=== PATIENT | female | born 1990 | race Caucasian/White ===

== ENCOUNTER 2018-06-18 23:21 | Emergency (ER) | payer MEDICAID ==
[2018-06-18 23:48] LABS: PLATELET COUNT 335 10^3/uL (150-400)
--- NOTE | 2018-06-19 00:01 | EDPHY ---
H & P Stated Complaint: SI overdose attempt, ETOH,cocaine, hydroxayzine - Personal History LMP (Females 10-55): Irregular Current Tetanus Diphtheria and Acellular Pertussis (TDAP): Yes - Medical/Surgical History Hx Asthma: No Hx Chronic Respiratory Disease: No Hx Diabetes: No Hx Cardiac Disease: No Hx Renal Disease: No Hx Cirrhosis: No Hx Alcoholism: No Hx HIV/AIDS: No Hx Splenectomy or Spleen Trauma: No Other PMH: Depresion, anxiety - Social History Smoking Status: Never smoked Time Seen by Provider: 06/18/18 23:26 HPI/ROS: Chief Complaint: Overdose HPI: 28-year-old woman with a history of anxiety states she was drinking multiple alcoholic drinks tonight, use cocaine in got involved in in argument with a friend. Patient became upset and took 10 hydroxyzine an attempt to " calm down". Patient states she had a similar episode a year ago was hospitalized. Denies any other ingestions. Has a history of anxiety. Also takes clonazepam but denies taking any tonight. No recent illness. No fevers or chills. No nausea or vomiting. No abdominal pain. No lightheadedness or fainting. No chest pain or shortness of breath. ROS: 10 systems were reviewed and were negative except those elements noted in the HPI. PMH: Anxiety Social History: No smoking, positive alcohol, positive cocaine Family History: non-contributory Physical Exam: Gen: Awake, Alert, No Distress HEENT: Nose: no rhinorrhea Eyes: PERRLA, EOMI Mouth: Moist mucosa Neck: Supple, no JVD Chest: nontender, lungs clear to auscultation Heart: S1, S2 normal, no murmur Abd: Soft, non-tender, no guarding Back: no CVA tenderness, no midline tenderness Ext: no edema, non-tender Skin: no rash Neuro: CN II-XII intact, Sensation grossly intact, Strength 5/5 in bilateral upper and lower extremities (Cruz Greenwood) Constitutional: Initial Vital Signs Temperature (C) 36.8 C 06/18/18 23:28 Heart Rate 81 06/18/18 23:28 Respiratory Rate 16 06/18/18 23:28 Blood Pressure 119/87 H 06/18/18 23:28 O2 Sat (%) 95 06/18/18 23:28 O2 Delivery Mode Room Air Allergies/Adverse Reactions: latex Allergy (Verified 06/18/18 23:27) Penicillins Allergy (Verified 06/18/18 23:27) Home Medications: Medication Instructions Recorded CLONAZEPAM 06/18/18 hydrOXYzine HCL 06/18/18 Medical Decision Making ED Course/Re-evaluation: Patient presenting with a hydroxyzine alcohol and cocaine overdose. She is awake alert. I placed on a mental health hold. She will need a sober evaluation. [id number] patient signed out to Dr. Patten pending mental health evaluation. (Cruz Greenwood) 7:00 a.m.-I assumed care of this patient at shift change. She presented with suicidal ideation, alcohol intoxication and intentional overdose of hydralazine. She is awaiting mental health evaluation. Patient tells me she was simply trying to go to sleep and that is why she took extra hydralazine. Denies suicidal ideation now. (Cathryn Patten) - Data Points Laboratory Results: Laboratory Results 06/18/18 23:35 06/18/18 23:35 06/18/18 06/18/18 06/18/18 23:35 23:35 23:35 WBC 8.71 10^3/uL 10^3/uL (3.80-9.50) RBC 4.85 10^6/uL 10^6/uL (4.18-5.33) Hgb 13.6 g/dL g/dL (12.6-16.3) Hct 42.3 % % (38.0-47.0) MCV 87.2 fL fL (81.5-99.8) MCH 28.0 pg pg (27.9-34.1) MCHC 32.2 g/dL L g/dL (32.4-36.7) RDW 13.9 % % (11.5-15.2) Plt Count 335 10^3/uL 10^3/uL (150-400) MPV 10.2 fL fL (8.7-11.7) Neut % (Auto) 65.9 % % (39.3-74.2) Lymph % (Auto) 28.8 % % (15.0-45.0) Summers % (Auto) 3.7 % L % (4.5-13.0) Eos % (Auto) 0.8 % % (0.6-7.6) Baso % (Auto) 0.6 % % (0.3-1.7) Nucleat RBC Rel Count 0.0 % % (0.0-0.2) Absolute Neuts (auto) 5.74 10^3/uL 10^3/uL (1.70-6.50) Absolute Lymphs (auto) 2.51 10^3/uL 10^3/uL (1.00-3.00) Absolute Monos (auto) 0.32 10^3/uL 10^3/uL (0.30-0.80) Absolute Eos (auto) 0.07 10^3/uL 10^3/uL (0.03-0.40) Absolute Basos (auto) 0.05 10^3/uL 10^3/uL (0.02-0.10) Absolute Nucleated RBC 0.00 10^3/uL 10^3/uL (0-0.01) Immature Gran % 0.2 % % (0.0-1.1) Immature Gran # 0.02 10^3/uL 10^3/uL (0.00-0.10) Sodium 140 mEq/L mEq/L (135-145) Potassium 3.7 mEq/L mEq/L (3.5-5.2) Chloride 110 mEq/L mEq/L (97-110) Carbon Dioxide 22 mEq/l mEq/l (22-31) Anion Gap 8 mEq/L mEq/L (6-14) BUN 10 mg/dL mg/dL (7-23) Creatinine 0.8 mg/dL mg/dL (0.6-1.0) Estimated GFR > 60 Glucose 84 mg/dL mg/dL (70-100) Calcium 9.9 mg/dL mg/dL (8.5-10.4) Beta HCG, Qual NEGATIVE Urine Opiates Screen Acetaminophen < 10 mcg/mL L mcg/mL (10-30) Urine Barbiturates Ur Phencyclidine Scrn Ur Amphetamine Screen U Benzodiazepines Scrn Urine Cocaine Screen U Marijuana (THC) Screen Ethyl Alcohol 153 mg/dL H mg/dL (0-10) 06/18/18 23:20 WBC RBC Hgb Hct MCV MCH MCHC RDW Plt Count MPV Neut % (Auto) Lymph % (Auto) Summers % (Auto) Eos % (Auto) Baso % (Auto) Nucleat RBC Rel Count Absolute Neuts (auto) Absolute Lymphs (auto) Absolute Monos (auto) Absolute Eos (auto) Absolute Basos (auto) Absolute Nucleated RBC Immature Gran % Immature Gran # Sodium Potassium Chloride Carbon Dioxide Anion Gap BUN Creatinine Estimated GFR Glucose Calcium Beta HCG, Qual Urine Opiates Screen NEGATIVE (NEGATIVE) Acetaminophen Urine Barbiturates NEGATIVE (NEGATIVE) Ur Phencyclidine Scrn NEGATIVE (NEGATIVE) Ur Amphetamine Screen NEGATIVE (NEGATIVE) U Benzodiazepines Scrn NEGATIVE (NEGATIVE) Urine Cocaine Screen NON-NEGATIVE H (NEGATIVE) U Marijuana (THC) Screen NEGATIVE (NEGATIVE) Ethyl Alcohol Departure - Departure Disposition: Home, Routine, Self-Care Clinical Impression: Suicidal ideation Alcoholic intoxication Qualifiers: Complication of substance-induced condition: uncomplicated Qualified Code(s): F10.920 - Alcohol use, unspecified with intoxication, uncomplicated Condition: Good Instructions: Suicide Prevention (ED), At-Risk Alcohol Use (ED) Additional Instructions: Follow-up with mental health as suggested. Referrals: [facility] [Outside] - As per Instructions
[2018-06-19 08:57] VITALS: BP 131/86
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
--- NOTE | 2018-06-19 11:36 | ASMTTCLDSP ---
TLC Discharge Disposition Disposition: Answers: Discharge If Answers: Yes DISCHARGED: Patient/family given suicide hotline info & SAMHSA brochure? Disposition Notes: Notes: Pt agreed to seek therapy. Her aunt found a Taoist therapist that she thought pt might like and pt was given the information on a female, Taoist therapist in [place] who accepts Medicaid. She was also taught how to locate therapists through [employer]. Pt was given information on [facility] offerings and was encouraged to explore receiving substance abuse treatment through them. Pt was given the suicide hot line number and the number and address for [facility]. Discharge Concerns/Recommendations: Notes: In consultation with [facility] ED physician,Dr Patten , it was concurred that Pt does not appear to meet 27-65 criteria requiring psychiatric hospitalization as Pt does not appear to be an imminent risk of harm to self due to a mental illness condition. Dr. Patten lifted the M1 hold at 08:[address] Patten, ED Physician Hold: Date and time M1 hold 06/19/2018 08:18 AM vacated (time format is hh:mm): Type of Hold: Answers: M1/72-hour Hold Hold initiated by: Answers: ED Physician Date Signed: 06/19/2018 10:34 AM Electronically Signed By:Evelia Hammer
== END 2018-06-19 08:45 | disposition home or self-care (01) ==
DX: R45.851 Suicidal ideations (principal); T43.592A Poisoning by other antipsychotics and neuroleptics, intentional self-harm, initial encounter; F10.920 Alcohol use, unspecified with intoxication, uncomplicated; F14.920 Cocaine use, unspecified with intoxication, uncomplicated; F41.9 Anxiety disorder, unspecified
CPT/HCPCS: 80305; G0480